=== PATIENT | female | born 1955 | race Caucasian/White ===

== ENCOUNTER 2017-01-17 14:17 | Outpatient (CLI) | payer BC ==
--- NOTE | 2017-01-17 19:16 | Diagnostic Imaging Report ---
Indication: Preop Technique: XRAY CHEST 2V Comparison: None Findings: Heart size and mediastinal contours are within normal limits. There is no focal airspace consolidation, pleural effusion or pneumothorax. There is scoliosis of the lower thoracic and lumbar spine. Punctate sclerotic focus in the right 10th rib is noted, likely a bone island. Impression: No radiographic evidence of acute cardiopulmonary disease. Scoliosis.
== END 2017-01-17 16:17 | disposition home or self-care (01) ==
LOC: RAD 14:17
DX: Z01.818 Encounter for other preprocedural examination (principal); R05 Cough; M41.9 Scoliosis, unspecified
CPT/HCPCS: 71020